=== PATIENT | female | born 1995 | race Caucasian/White ===

== ENCOUNTER → 2017-09-12 | Outpatient (CLI) | payer BC ==
--- NOTE | 2017-09-13 08:52 | KCIC ---
MR of the left knee Indication: Left knee pain for 4 or 5 years. Pain anterior and posterior. Technique: The standard multiplanar sequences are obtained. Findings: Medial meniscus:Intact. Lateral meniscus: Intact. Anterior cruciate ligament: Intact Posterior cruciate ligament: Intact Medial collateral ligament: Intact. Iliotibial band: Intact. Lateral collateral ligament: Intact Posterolateral corner: No internal derangement identified. Extensor mechanism: Intact. Fluid: Trace joint fluid. Trace Sprague's cyst. Articular cartilage -patellofemoral joint:Intact -medial compartment:Intact -lateral compartment:Intact Bones: No significant lesion or acute fracture. Soft tissue: Unremarkable. There is mild lateral patellar tilt and subluxation. Tibial tubercle-trochlear groove distance measures 16 mm. Impression: 1. No meniscal tear or internal derangement. 2. Mild lateral patellar tilt and subluxation. Tibial tubercle lateralization measures 16 mm. Electronically signed by: Urbano No MD (09/13/2017 8:50 AM) [id number]
== END | disposition home or self-care (01) ==
LOC: KCIC MRI 17:17
PROVIDERS: ATTEND Physician Assistant Medical
DX: S83.012A Lateral subluxation of left patella, initial encounter (principal); X58.XXXA Exposure to other specified factors, initial encounter; Y93.89 Activity, other specified; Y92.89 Other specified places as the place of occurrence of the external cause; Y99.8 Other external cause status
CPT/HCPCS: 73721